=== PATIENT | female | born 1950 | race Caucasian/White ===

== ENCOUNTER → 2017-07-09 | Outpatient (CLI) | payer MEDICARE ==
--- NOTE | 2017-07-09 14:26 | RAD ---
DATE: 07/09/2017 EXAM: MAMMO KENISHA SCREENING BILATERAL HISTORY: Routine screening COMPARISON: 06/16/2016 This study was interpreted with the benefit of Computerized Aided Detection (CAD). The breast parenchyma is heterogeneously dense, which could reduce sensitivity of mammography. Breast parenchyma level C. FINDINGS: 2-D and 3-D tomosynthesis imaging was performed in CC and MLO projections. No new or enlarging breast densities are seen. There is minimal benign type calcification. No suspicious microcalcifications have developed. IMPRESSION: Stable mammograms without evidence of malignancy. BI-RADS CATEGORY: 2 BENIGN FINDING(S) RECOMMENDED FOLLOW-UP: 12M 12 MONTH FOLLOW-UP PQRS compliance statement: Patient information was entered into a reminder system with a target due date for the next mammogram. Mammography is a sensitive method for finding small breast cancers, but it does not detect them all and is not a substitute for careful clinical examination. A negative mammogram does not negate a clinically suspicious finding and should not result in delay in biopsying a clinically suspicious abnormality. "Our facility is accredited by the [employer] Mammography Program."
== END | disposition home or self-care (01) ==
LOC: MAMMO 10:57
PROVIDERS: ATTEND Family Medicine
DX: Z12.31 Encounter for screening mammogram for malignant neoplasm of breast (principal); Z80.3 Family history of malignant neoplasm of breast
CPT/HCPCS: 77063; G0202; 77067

== ENCOUNTER 2017-11-23 21:42 | Inpatient (IN) | payer MEDICARE ==
[~2017-11-23] VITALS: Ht 177.8 cm; Wt 95.0 kg
[~2017-11-23 21:42] MED LIST: CIPR500T94 PO
--- NOTE | 2017-11-23 21:49 | ED.ADGEN ---
Past History Past Medical History: UTI Adult General Chief Complaint Chief Complaint " I seen Dr. Butcher office and they started me on Cipro 500.. I ve been have dysuria and burning since last two days.. I ve been taking the AZO.. but it is not helping... I did take one Oxycodone 5 mg at 1400 hrs. .. and the Cipro at 1700.. I have a pending culture at [facility]... 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 Pt. has extensive medical hx. , Asthma, HTN, Hyperlipidemia, DVT, Blin Rt eye, Hearing deficits, Osteoarthritis, DJD, Polymyalgia Rhematica, GERD, diverticulosis, Migraines, Hypothyroid, Anxiety, Sleep Apnea, Chronic Pain, Urinary incontinence, Low Vit. D levels, KneeT Rt, Lumbar Laminectomy, Cervical Fusin, Laparoscopic Eval. , Cholecystectomy, Hysterectomey, Oopherectomy, Appendectomy. Diverticulosis, GERD and CADz. Pt. follows with Alana You Pasnoori, Vani, Holladay, Jones, Reifschneider, Kenia, Nicole, Law, Jasper Pascal for her multiple medical problems. Pt has had interment steroids for polymyalgia rheumatica.. and asthma. Last course of steroids was 10/02. Pt. localize pain to supra pubic and Rt. flank pain on percussion. Review of Systems Review of Systems Constitutional: Complaints of fever and chills [] Eyes: Denies change in visual acuity, redness, or eye pain [] HENT: Denies nasal congestion or sore throat [] Respiratory: Denies cough or shortness of breath [] Cardiovascular: No additional information not addressed in HPI [] GI: complaints of Rt. flank and suprapubic abdominal pain, nausea, Denies, vomiting, bloody stools or diarrhea [] : Denies dysuria or hematuria [] Musculoskeletal: Denies back pain or joint pain [] Integument: Denies rash or skin lesions [] Neurologic: Denies headache, focal weakness or sensory changes [] Endocrine: Denies polyuria or polydipsia [] All other systems were reviewed and found to be within normal limits, except as documented in this note. Family History Family History CHF, HTN, Parkinson, Prostate CA, Lung CA, Pneumonia, Parncreatic Cancer, Depression, Migraines,with parents. Brother ate 57, Liver Cancer. Current Medications Current Medications Current Medications Medications (Trade) Dose Ordered Sig/Talia Start Time Stop Time Status Last Admin Dose Admin Ceftriaxone Sodium 1 gm/ Sodium Chloride 50 ml @ 100 mls/hr BID 11/24/17 09:00 UNV Ceftriaxone Sodium (Rocephin) 1 gm Q12HR 11/24/17 09:00 11/24/17 09:00 DC Ciprofloxacin (Cipro) 500 mg [id number] 11/24/17 06:00 11/24/17 06:00 DC Lactated Ringer's 1,000 ml @ 1,000 mls/hr Q1H 11/23/17 22:30 11/23/17 23:29 DC 11/23/17 22:49 1,000 MLS/HR Lactobacillus Rhamnosus (Culturelle) 1 cap BID 11/24/17 09:00 11/24/17 09:00 DC Ondansetron HCl (Zofran) 4 mg PRN Q4HRS PRN 11/24/17 00:30 11/24/17 02:07 DC Oxycodone/ Acetaminophen (Percocet 10/325) 1 tab 1X ONCE 11/23/17 22:30 11/23/17 22:31 DC 11/23/17 22:50 1 TAB Oxycodone/ Acetaminophen (Percocet 5/325) 2 tab QIDPRN PRN 11/24/17 00:30 11/24/17 02:07 DC See Nursing for home meds Allergies Allergies Allergies Coded Allergies Type Severity Reaction Last Updated Verified aspirin Allergy Mild 11/23/17 Yes ibuprofen Allergy Mild 11/23/17 Yes ketorolac Allergy Mild 11/23/17 Yes Sulfa (Sulfonamide Antibiotics) Allergy Unknown 11/23/17 Yes amoxicillin Allergy Unknown 11/23/17 Yes bupropion Allergy Unknown 11/23/17 Yes celecoxib Allergy Unknown 11/23/17 Yes metoclopramide Allergy Unknown 11/23/17 Yes nitrofurantoin Allergy Unknown 11/23/17 Yes tetracycline Allergy Unknown 11/23/17 Yes topiramate Allergy Unknown 11/23/17 Yes Physical Exam Physical Exam Constitutional: Moderately acute distress, non-toxic appearance. [] HENT: Normocephalic, atraumatic, bilateral external ears normal, oropharynx moist, no oral exudates, nose normal. [] Eyes: Decreased vision Rt eye,, conjunctiva normal, no discharge. Glasses. Neck: Normal range of motion, no tenderness, supple, no stridor. [] Cardiovascular: Tachycardia Heart rate regular rhythm, no murmur [] Lungs & Thorax: Bilateral breath sounds few scattered wheezes apex on auscultation [] Abdomen: Bowel sounds normal, soft, supra pubic tenderness, no masses, no pulsatile masses. Old scars. Rt. flank pain on percussion. Skin: Warm, dry, no erythema, no rash. [] Back: No tenderness, no CVA tenderness. [] Extremities: No tenderness, no cyanosis, no clubbing, ROM intact, no edema. [] Neurologic: Alert and oriented X 3, normal motor function, normal sensory function, no focal deficits noted. [] Psychologic: Affect anxious, , judgement normal, mood normal. [] Current Patient Data Lab Results Laboratory Tests Test 11/23/17 21:55 11/23/17 22:45 11/23/17 23:15 Urine Collection Type Unknown Urine Color Yellow Urine Clarity Turbid Urine pH 7.0 Urine Specific [place] 1.010 Urine Protein 100 mg/dl (NEG-TRACE) Urine Glucose (UA) 100 mg/dL (NEG) Urine Ketones (Stick) Neg mg/dL (NEG) Urine Blood Large (NEG) Urine Nitrite Pos (NEG) Urine Bilirubin Neg (NEG) Urine Urobilinogen Dipstick 1 mg/dL (0.2 mg/dL) Urine Leukocyte Esterase Large (NEG) Urine RBC 11-20 /HPF (0-2) Urine WBC Tntc /HPF (0-4) Urine Squamous Epithelial Cells None /LPF Urine Bacteria 0 /HPF (0-FEW) White Blood Count 8.7 x10^3/uL (4.0-11.0) Red Blood Count 3.55 x10^6/uL (3.50-5.40) Hemoglobin 12.0 g/dL (12.0-15.5) Hematocrit 35.0 % (36.0-47.0) L Mean Corpuscular Volume 98 fL (79-100) Mean Corpuscular Hemoglobin 34 pg (25-35) Mean Corpuscular Hemoglobin Concent 34 g/dL (31-37) Red Cell Distribution Width 13.9 % (11.5-14.5) Platelet Count 211 x10^3/uL (140-400) Neutrophils (%) (Auto) 73 % (31-73) Lymphocytes (%) (Auto) 17 % (24-48) L Monocytes (%) (Auto) 8 % (0-9) Eosinophils (%) (Auto) 2 % (0-3) Basophils (%) (Auto) 0 % (0-3) Neutrophils # (Auto) 6.4 x10^3uL (1.8-7.7) Lymphocytes # (Auto) 1.5 x10^3/uL (1.0-4.8) Monocytes # (Auto) 0.7 x10^3/uL (0.0-1.1) Eosinophils # (Auto) 0.2 x10^3/uL (0.0-0.7) Basophils # (Auto) 0.0 x10^3/uL (0.0-0.2) Sodium Level 140 mmol/L (136-145) Potassium Level 4.1 mmol/L (3.5-5.1) Chloride Level 102 mmol/L (98-107) Carbon Dioxide Level 30 mmol/L (21-32) Anion Gap 8 (6-14) Blood Urea Nitrogen 17 mg/dL (7-20) Creatinine 0.8 mg/dL (0.6-1.0) Estimated GFR (Cockcroft-Gault) 71.5 Glucose Level 142 mg/dL (70-99) H Lactic Acid Level 2.0 mmol/L (0.4-2.0) Calcium Level 8.7 mg/dL (8.5-10.1) Influenza Type A (Rapid) Negative (NEGATIVE) Influenza Type B (Rapid) Negative (NEGATIVE) EKG EKG [] Radiology/Procedures Radiology/Procedures [] Course & Med Decision Making Course & Med Decision Making Pertinent Labs and Imaging studies reviewed. (See chart for details) Discussed presentation, testing and treatment plan with , will admit for IV antibiotic and further eval. [] Final Impression Final Impression 1. Dysuria 2. Fever and Chills[] 3. Urinary tract infection- 4. Out Pt. tx. faliure on po antibiotics 5. Clinical Pyelonephritis Problems: All Disclaimer Dragon Disclaimer This electronic medical record was generated, in whole or in part, using a voice recognition dictation system. MAGEN BROWER MD Nov 23, 2017 21:49
[2017-11-23] MEDS ORDERED: oxyCODONE/APAP 10/325 1 TAB TABLET PO ONE (22:30)
[2017-11-23] MEDS ORDERED: IV RINGERS SOLUTION,LACTATED 1,000 ML IV SCH (22:30)
[2017-11-23] MEDS ORDERED: ONDANSETRON PF 4 MG/2 ML VIAL. IV ONE ×2 (22:30)
[2017-11-23 22:37] LABS: BACTERIA,URINE 0 /HPF (0-FEW); BILIRUBIN,URINE NEG (NEG); CLARITY,URINE TURBID; COLOR,URINE YELLOW; GLUCOSE,URINE 100 mg/dL (NEG); NITRITE,URINE POS (NEG); UROBILINOGEN,URINE 1 mg/dL (0.2 mg/dL); WBC,URINE TNTC /HPF (0-4)
[2017-11-23] MEDS ORDERED: cefTRIAXone IV Push 1 GM VIAL. IVP ONE (23:00)
[2017-11-23 23:08] LABS: BASO % 0 % (0-3); CALCIUM 8.7 mg/dL (8.5-10.1); CREATININE 0.8 mg/dL (0.6-1.0); EOS # 0.2 x10^3/uL (0.0-0.7); EOS % 2 % (0-3); GFR 71.5; LYMPH # 1.5 x10^3/uL (1.0-4.8); LYMPH % 17 % (24-48); MEAN CORPUSCULAR HEMOGLOBIN 34 pg (25-35); MEAN CORPUSCULAR HGB CONC 34 g/dL (31-37); MEAN CORPUSCULAR VOLUME 98 fL (79-100); MONO # 0.7 x10^3/uL (0.0-1.1); MONO % 8 % (0-9); NEUT # 6.4 x10^3uL (1.8-7.7); NEUT % 73 % (31-73); PLATELET COUNT 211 x10^3/uL (140-400); POTASSIUM 4.1 mmol/L (3.5-5.1); RED BLOOD COUNT 3.55 x10^6/uL (3.50-5.40); RED CELL DISTRIBUTION WIDTH 13.9 % (11.5-14.5); WHITE BLOOD COUNT 8.7 x10^3/uL (4.0-11.0)
[2017-11-23 23:47] LABS: INFLUENZA A PATIENT NEGATIVE (NEGATIVE); INFLUENZA B PATIENT NEGATIVE (NEGATIVE)
[2017-11-24] MEDS ORDERED: ONDANSETRON PF 4 MG/2 ML VIAL. IV PRN (00:30)
[2017-11-24] MEDS ORDERED: oxyCODONE/APAP 5/325 1 TAB TABLET PO PRN (00:30)
[2017-11-24 02:47] VITALS: BP 129/71
[2017-11-24] MEDS ORDERED: METO-239 PO (03:07)
[2017-11-24] MEDS ORDERED: CITA20TA9 PO (03:07)
[2017-11-24] MEDS ORDERED: PANT40TA5 PO (03:08)
[2017-11-24] MEDS ORDERED: LEVO50TA5 PO (03:08)
[2017-11-24] MEDS ORDERED: MULT1TAB52 PO (03:09)
[2017-11-24] MEDS ORDERED: ATOR10TA60 PO (03:09)
[2017-11-24] MEDS ORDERED: FEXO180T81 PO (03:09)
[2017-11-24] MEDS ORDERED: LORA10TA3 PO (03:09)
[2017-11-24] MEDS ORDERED: FURO-69 PO (03:12)
[2017-11-24] MEDS ORDERED: MAGN400C PO (03:12)
[2017-11-24] MEDS ORDERED: CHOL500016 PO (03:12)
[2017-11-24] MEDS ORDERED: TIOT4MIS3 IH (03:24)
[2017-11-24] MEDS ORDERED: ALBU8.5H8 INH (03:24)
[2017-11-24] MEDS ORDERED: ACETAMINOPHEN 500 MG TABLET PO PRN (04:15)
[2017-11-24] MEDS ORDERED: ACETAMINOPHEN 325 MG TABLET PO ONE (04:25)
[2017-11-24] MEDS: ACETAMINOPHEN 325 MG TABLET PO PRN ×3 (04:33→21:03)
[2017-11-24] MEDS: CIPROFLOXACIN HCL 500 MG TABLET PO SCH ×2 (04:34→19:18)
[2017-11-24 04:54] VITALS: BP 112/54
[2017-11-24] MEDS ORDERED: cefTRIAXone IV Push 1 GM VIAL. IVP SCH (09:00)
[2017-11-24] MEDS: LACTOBACILLUS RHAMNOSUS GG 1 CAPSULE. PO SCH ×2 (10:24→20:26)
[2017-11-24 11:41] VITALS: BP 110/65
[2017-11-24 15:34] VITALS: BP 125/57
[2017-11-24] MEDS ORDERED: IOHEXOL 240 MG/ML 50ML VIAL. PO ONE (17:00)
[2017-11-24] MEDS ORDERED: IOHEXOL 300 MG/ML 75 ML VIAL. IV ONE (17:00)
[2017-11-24 18:04] LABS: HEMATOCRIT 32.9 % (36.0-47.0); HEMOGLOBIN 11.3 g/dL (12.0-15.5); RED BLOOD COUNT 3.32 x10^6/uL (3.50-5.40); RED CELL DISTRIBUTION WIDTH 14.4 % (11.5-14.5)
[2017-11-24 18:14] LABS: ALBUMIN 3.1 g/dL (3.4-5.0); CALCIUM 8.6 mg/dL (8.5-10.1); CREATININE 0.9 mg/dL (0.6-1.0); GFR 62.5; POTASSIUM 4.2 mmol/L (3.5-5.1); TOTAL BILIRUBIN 0.2 mg/dL (0.2-1.0); TOTAL PROTEIN 6.3 g/dL (6.4-8.2)
[2017-11-24] MEDS ORDERED: ALBUTEROL SULFATE 2.5 MG/3 ML NEBU. NEB PRN (18:15)
--- NOTE | 2017-11-24 18:33 | RAD ---
CT CHEST ABD PELVIS W/CONTRAST Indication: Fever with cough and abdominal pain . Comparison: No comparison is available. Contrast: Intravenous and oral Exposure: One or more of the following individualized dose reduction techniques were utilized for this examination: 1. Automated exposure control 2. Adjustment of the mA and/or kV according to patient size 3. Use of iterative reconstruction technique. Chest Thoracic aorta demonstrates no aneurysm or dissection. Proximal great vessels are patent. The main central pulmonary arteries are grossly patent. No pericardial effusion. No pleural effusion. Mild linear markings in both lungs, compatible with mild atelectasis. No dense airspace consolidation. The trachea and central airways are patent. Mild degenerative spondylosis. IMPRESSION: No acute findings in the chest. Mild atelectasis in both lungs. Abdomen and pelvis Liver and spleen appear unremarkable. Pancreas unremarkable. There is a small pocket of contrast and air adjacent to the pancreatic head and just medial to the duodenum, likely a diverticulum, measuring 15 mm. No adrenal mass. Kidneys demonstrate symmetric uptake of contrast. Hypodense lesion arising from the lower pole of the right kidney, 4.5 cm diameter, compatible with a cyst. Gallbladder surgically absent. No aortic aneurysm. No evidence of significant lymph node enlargement. No bowel obstruction. No acute colitis. Moderate retained stool in the colon. Appendix is not clearly visualized. No evidence of ascites. Urinary bladder is not opacified but grossly unremarkable. Degenerative spondylosis of the spine. IMPRESSION: 1. No acute findings in the abdomen or pelvis. 2. Small pocket of contrast and fluid medial to the duodenum likely a diverticulum, 15 mm. 3. There may be mild constipation. Electronically signed by: Luis E Lopez MD (11/24/2017 6:30 PM) [id number]
[2017-11-24 19:13] VITALS: BP 117/50
--- NOTE | 2017-11-24 20:25 | HP ---
ADMIT DATE: SUBJECTIVE: The patient is a 67-year-old female who basically has been having dysuria and burning sensation and frequency that started last . She is taking her ____, but not in much help. She has taken also one oxycodone without much help and started Cipro at 1700 yesterday without much improvement and she came to the Emergency Room because of severe pain. She was extensively investigated and was basically started on IV antibiotic and admitted for further evaluation and treatment and was continued on both Cipro and the ER physician added also Rocephin. She denied any fever, chills, or rigors. She did have chills actually, but no fever or rigors. 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 She has also aches and pains in her shoulders and was seen by Dr. Hamlin who diagnosed her with polymyalgia rheumatica, but she could not tolerate any steroids, it tears her stomach. PAST MEDICAL HISTORY: Significant for hypertension, hyperlipidemia, hypothyroidism, bronchial asthma, gastroesophageal reflux disease, chronic cough syndrome and questionable polymyalgia rheumatica. She has also noted to have obstructive sleep apnea, on CPAP. She did have a history of DVT long time ago. Significant for total abdominal hysterectomy and bilateral salpingo-oophorectomy, cholecystectomy, cervical fusion and lumbar laminectomy, bilateral cataract extraction, right total knee arthroplasty and multiple surgeries on both feet, totalled about 4, she has also left middle ear surgery. ALLERGIES: SHE IS ALLERGIC TO SULFA, AMOXICILLIN, ASPIRIN, WELLBUTRIN, and CELEBREX, TOGETHER WITH NITROFURANTOIN. SOCIAL HISTORY: Unremarkable, she is , lives with . 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 She does not smoke, drink alcohol or recreational drugs. FAMILY HISTORY: Positive for cancer, heart disease, osteoarthritis and Parkinson's disease. REVIEW OF SYSTEMS: As in history of present illness. On arrival to the Emergency Room, she was pale, no jaundice, cyanosis, or thyromegaly. No jugular venous distension. No lower limb edema. PHYSICAL EXAMINATION: VITAL SIGNS: Her heart rate was 89, blood pressure 145/66, temperature was 100, respiratory rate was 20, and oxygen saturation was 99%. HEAD, EYES, EARS, NOSE AND THROAT: Normocephalic, atraumatic. NECK: Supple. HEART: Showed normal first and second sounds. No gallop, rub or murmur. CHEST: Shows central trachea, equal bilateral expansion, air entry, vesicular sounds. I could not really appreciate any crepitation or rhonchi. ABDOMEN: Distended, soft, nontender. NEUROLOGIC: She is awake, alert, responding appropriately. Cranial nerves intact. She moves extremities without difficulty. She ambulates without assistance or assistive devices. LABORATORY DATA: Showed a white cell count of 8700, hemoglobin 12, hematocrit 35, MCV 98 and platelet count of 211,000. Her chemistry showed a serum sodium 140, potassium 4.1, chloride 102, bicarbonate 30, anion gap of 8, BUN 17, creatinine 0.8, estimated GFR was 71 mL per minute. Her glucose 142, lactic acid 2, and calcium was 8.7. Urinalysis showed the urine was yellow, turbid with a pH of 7, specific gravity of 1.010, there is large amount of protein and modest amount of glucose, the urine was negative for ketones, large amount of blood, ____ for nitrite and large amount of leukocyte esterase with 11-20 RBCs, too numerous to count WBCs and no bacteria. She was admitted with the diagnoses of urinary tract infection and possible viral nephritis. She has other medical problems including chronic cough syndrome versus bronchial asthma, obstructive sleep apnea, polymyalgia rheumatica, hypertension, hyperlipidemia, hypothyroidism and gastroesophageal reflux disease. PLAN: My plan is to continue with IV antibiotic. Await the result of the culture and sensitivity and adjust antibiotic accordingly. SANTO LING MD DR: JORGE/jordan JOB#: [id number] / [id number]
[2017-11-24] MEDS: MAGNESIUM OXIDE 400 MG TABLET PO SCH (20:27)
[2017-11-24] MEDS ORDERED: ATORVASTATIN CALCIUM 10 MG TABLET. PO SCH (21:00)
[2017-11-24] MEDS ORDERED: METOPROLOL SUCC 24HR ER 25 MG TAB.ER.24H. PO SCH (21:00)
[2017-11-24] MEDS ORDERED: LEVOTHYROXINE 50 MCG TABLET PO SCH ×2 (21:00)
[2017-11-24] MEDS ORDERED: MULTIVITAMIN with MINERAL TABLET. PO SCH (21:00)
[2017-11-24] MEDS ORDERED: CIPROFLOXACIN HCL 500 MG TABLET PO SCH (21:00)
[2017-11-24] MEDS ORDERED: CITALOPRAM 20 MG TABLET. PO SCH (21:00)
[2017-11-24] MEDS: PANTOPRAZOLE 40 MG TABLET. PO SCH (21:01)
[2017-11-24] MEDS: IPRATRPIUM/ALBUTEROL 0.5/2.5MG 3 ML NEBU. NEB SCH (21:27)
[2017-11-24 22:58] VITALS: BP 126/63
[2017-11-25] MEDS: IPRATRPIUM/ALBUTEROL 0.5/2.5MG 3 ML NEBU. NEB SCH ×2 (05:18→11:22)
[2017-11-25 05:30] VITALS: BP 105/57
[2017-11-25] MEDS: ACETAMINOPHEN 325 MG TABLET PO PRN ×2 (05:32→12:48)
[2017-11-25] MEDS: CIPROFLOXACIN HCL 500 MG TABLET PO SCH (05:32)
[2017-11-25] MEDS ORDERED: LEVOTHYROXINE 50 MCG TABLET PO SCH (06:00)
[2017-11-25 07:27] LABS: HEMATOCRIT 32.3 % (36.0-47.0); HEMOGLOBIN 11.2 g/dL (12.0-15.5); RED BLOOD COUNT 3.26 x10^6/uL (3.50-5.40); RED CELL DISTRIBUTION WIDTH 14.7 % (11.5-14.5); WHITE BLOOD COUNT 5.3 x10^3/uL (4.0-11.0)
[2017-11-25 07:45] LABS: ALBUMIN/GLOBULIN RATIO 0.9 (1.0-1.7); CALCIUM 8.9 mg/dL (8.5-10.1); CREATININE 0.8 mg/dL (0.6-1.0); GFR 71.5; POTASSIUM 3.9 mmol/L (3.5-5.1); TOTAL BILIRUBIN 0.3 mg/dL (0.2-1.0); TOTAL PROTEIN 6.2 g/dL (6.4-8.2)
[2017-11-25] MEDS: PANTOPRAZOLE 40 MG TABLET. PO SCH (08:04)
[2017-11-25] MEDS: MAGNESIUM OXIDE 400 MG TABLET PO SCH (08:04)
[2017-11-25] MEDS: LACTOBACILLUS RHAMNOSUS GG 1 CAPSULE. PO SCH (08:04)
[2017-11-25] MEDS ORDERED: CHOLECALCIFEROL (VITAMIN D3) 1,000 UNIT TABLET PO SCH (09:00)
[2017-11-25] MEDS ORDERED: NON FORMULARY ITEM (Tiotropium Br/Olodaterol HCl (Stiolto Respimat Inhal Spray) 4 GM) IH SCH (09:00)
[2017-11-25] MEDS ORDERED: CETIRIZINE HCL 10 MG TABLET PO SCH (09:00)
[2017-11-25] MEDS ORDERED: FUROSEMIDE 20 MG TABLET PO SCH (09:00)
[2017-11-25] MEDS ORDERED: cefTRIAXone IV Push 1 GM VIAL. IVP SCH (09:00)
[2017-11-25] MEDS ORDERED: NON FORMULARY ITEM (Fexofenadine Hcl (Allegra Allergy) 1 TAB) PO SCH (09:00)
[2017-11-25 10:46] VITALS: BP 118/51
--- NOTE | 2017-11-25 15:49 | DS ---
DATE OF DISCHARGE: 11/25/2017 HISTORY OF PRESENT ILLNESS: The patient is a 67-year-old female patient, who came to the Emergency Room complaining of severe lower abdominal pain and left flank pain together with dysuria and frequency, there is also some chills. She was already started by her primary care physician on ciprofloxacin. Her urinalysis showed that there are large amount of leukocyte esterase, 11-20 rbc's and too numerous to count wbc's, however, no bacteria and her urine culture has grown only 10,000-25,000 of gram-negative rods. This was obviously after she received her Cipro and the patient herself is feeling much better. She has no further episode of dysuria or frequency. No fever and we did a CT scan of the abdomen and pelvis, which was basically unremarkable and showed no acute finding in the abdomen and pelvis, small pocket of contrast and fluid medium to duodenum, likely diverticulum about 15 mm. There might be mild constipation. PHYSICAL EXAMINATION: GENERAL: When I examined her, she was sitting on the edge of the bed comfortably, in no apparent distress, slightly pale, but no jaundice, cyanosis, or thyromegaly. No jugular venous distension. No limb edema. VITAL SIGNS: Her heart rate was 74, blood pressure was 118/51, temperature was 97.9, respiratory rate was 18 and oxygen saturation was 96%. HEAD, EYES, EARS, NOSE AND THROAT: Showed normocephalic, atraumatic. NECK: Supple. HEART: Showed normal first and second heart sounds with no gallop, rub or murmur. CHEST: Clear to auscultation. No crepitation or rhonchi. ABDOMEN: Distended, soft. NEUROLOGIC: She was awake, alert, responding appropriately. Cranial nerves intact. EXTREMITIES: She moves extremities without difficulty. LABORATORY DATA: Her white cell count is down to 5300, hemoglobin 11, hematocrit 32, MCV 99, and platelet count of 178,000. Her sedimentation rate was 60 mm per hour and her serum sodium was 141, potassium 3.9, chloride 104, bicarbonate 31, anion gap of 6, BUN 12, creatinine 0.8, estimated GFR was 71 mL per minute. Her glucose 142, calcium was 8.9. Total bilirubin, AST, ALT, alkaline phosphatase were normal. Her total protein was 6.2, albumin 3. Her C-reactive protein was high at 76 mg/dL. DISCHARGE MEDICATIONS: The patient was discharged home to continue on albuterol sulfate 2 puffs every 6 hours, atorvastatin 10 mg at bedtime, cholecalciferol for vitamin D3 5000 units one tablet p.o. at bedtime, ciprofloxacin 500 mg twice a day, Celexa 20 mg at bedtime, fexofenadine for Susie 180 mg once a day, Lasix 20 mg once a day, levothyroxine sodium 50 mg at bedtime, loratadine 10 mg at bedtime, magnesium oxide 400 mg twice a day, metoprolol succinate 25 mg once a day, multivitamin one tablet once a day, Protonix 40 mg twice a day, Spiriva HandiHaler, olodaterol for Stiolto Respimat inhaler spray 1 inhalation daily. FINAL DISCHARGE DIAGNOSES: Urinary tract infection with growth of gram-negative bacteria. The colony count is very small, however, she has already been treated with Cipro and I did ask her to call Dr. Butcher to find out if that was sent from his office showed any growth to continue treatment according to the finding there. Clinically, she seems to be responding to that. Other medical problems include hypertension, hyperlipidemia, hypothyroidism, bronchial asthma, gastroesophageal reflux disease, chronic cough syndrome, questionable polymyalgia rheumatica. She also has obstructive sleep apnea, on CPAP. SANTO LING MD DR: JORGE/jordan JOB#: [id number] / [id number]
== END 2017-11-25 15:13 | disposition home or self-care (01) | DRG 690 ==
LOC: ER 21:42 → 1 SOUTH 11-24 00:01 → ER 11-24 02:07
PROVIDERS: ADMIT Internal Medicine; ATTEND Internal Medicine
PROC: 5A09357 Assistance with Respiratory Ventilation, Less than 24 Consecutive Hours, Continuous Positive Airway Pressure (ICD-10-PCS; principal; 2017-11-24)
DX: N39.0 Urinary tract infection, site not specified (principal); Z99.81 Dependence on supplemental oxygen; E03.9 Hypothyroidism, unspecified; E78.5 Hyperlipidemia, unspecified; G47.33 Obstructive sleep apnea (adult) (pediatric); K57.10 Diverticulosis of small intestine without perforation or abscess without bleeding; I10 Essential (primary) hypertension; J45.909 Unspecified asthma, uncomplicated; K21.9 Gastro-esophageal reflux disease without esophagitis; F41.9 Anxiety disorder, unspecified; G43.909 Migraine, unspecified, not intractable, without status migrainosus; G89.29 Other chronic pain; H54.61 Unqualified visual loss, right eye, normal vision left eye; I25.10 Atherosclerotic heart disease of native coronary artery without angina pectoris; B96.20 Unspecified Escherichia coli [E. coli] as the cause of diseases classified elsewhere; M35.3 Polymyalgia rheumatica; K59.00 Constipation, unspecified; Z96.651 Presence of right artificial knee joint; Z80.0 Family history of malignant neoplasm of digestive organs; Z80.1 Family history of malignant neoplasm of trachea, bronchus and lung; Z81.8 Family history of other mental and behavioral disorders; Z82.0 Family history of epilepsy and other diseases of the nervous system; Z82.49 Family history of ischemic heart disease and other diseases of the circulatory system; Z86.718 Personal history of other venous thrombosis and embolism; Z90.710 Acquired absence of both cervix and uterus; Z98.41 Cataract extraction status, right eye; Z98.42 Cataract extraction status, left eye; Z88.6 Allergy status to analgesic agent; Z88.1 Allergy status to other antibiotic agents; Z88.2 Allergy status to sulfonamides; Z88.8 Allergy status to other drugs, medicaments and biological substances; Z90.722 Acquired absence of ovaries, bilateral; Z90.49 Acquired absence of other specified parts of digestive tract; Z82.61 Family history of arthritis; Z80.42 Family history of malignant neoplasm of prostate; Z98.1 Arthrodesis status
CPT/HCPCS: 36415; 71260; 74177; 80048; 80053; 81001; 83605; 85025; 85027; 85651; 86140; 87040; 87086; 87804; 94640; 96361; 96374; 96375; J0696; J2405; J7120; J7620; Q9966; Q9967; 99285-25

== ENCOUNTER → 2018-07-18 | Outpatient (CLI) | payer MEDICARE ==
[~2018-07-18] MED LIST changes: +ALBU8.5H8 INH; +ATOR10TA60 PO; +CHOL500016 PO; +CITA20TA9 PO; +FEXO180T81 PO; +FURO-69 PO; +LEVO50TA5 PO; +LORA10TA3 PO; +MAGN400C PO; +METO-239 PO; +MULT1TAB52 PO; +PANT40TA5 PO; +TIOT4MIS3 IH
--- NOTE | 2018-07-18 13:56 | RAD ---
DATE: 07/18/2018 EXAM: DIGITAL SCREEN BILAT W/CAD HISTORY: Routine screening COMPARISON: 07/09/2017 This study was interpreted with the benefit of Computerized Aided Detection (CAD). Breast Density: HETERO The breast parenchyma is heterogenously dense, which could reduce sensitivity of mammography. Breast parenchyma level C. FINDINGS: No new or enlarging breast densities are seen. Minimal benign type calcification is present. No suspicious microcalcifications have developed. IMPRESSION: Stable mammograms without evidence of malignancy. BI-RADS CATEGORY: 2 BENIGN FINDING(S) RECOMMENDED FOLLOW-UP: 12M 12 MONTH FOLLOW-UP PQRS compliance statement: Patient information was entered into a reminder system with a target due date for the next mammogram. Mammography is a sensitive method for finding small breast cancers, but it does not detect them all and is not a substitute for careful clinical examination. A negative mammogram does not negate a clinically suspicious finding and should not result in delay in biopsying a clinically suspicious abnormality. "Our facility is accredited by the [employer] Mammography Program."
== END | disposition home or self-care (01) ==
LOC: MAMMO 10:06
PROVIDERS: ATTEND Family Medicine
DX: Z12.31 Encounter for screening mammogram for malignant neoplasm of breast (principal)
CPT/HCPCS: 77067

== ENCOUNTER → 2018-08-20 | Outpatient (CLI) | payer MEDICARE ==
--- NOTE | 2018-08-20 16:51 | RAD ---
Examination: Right Lower Extremity Venous Doppler Ultrasound History: Right lower extremity pain, swelling Comparison: None Procedure: Rodriguez scale, color flow 2D and spectal waveform analysis images are obtained with and without compression in the area of the common femoral vein, superficial femoral vein - femoral vein junction, main femoral vein (superficial femoral vein) and popliteal vein. Veins of the proximal calf are also imaged. Findings: There is normal duplex flow, color flow and compressibility of all visualized vein segments. No evidence of deep venous thrombus is present. Fluid echogenicity identified in the anterior knee region could be joint effusion or bursal fluid.. Impression: 1. No evidence of DVT. 2. Fluid echogenicity identified in the anterior knee region could be joint effusion or bursal fluid.. Electronically signed by: Lex Lr MD (08/20/2018 4:48 PM) [place] [id number]
== END | disposition home or self-care (01) ==
LOC: US 15:12
PROVIDERS: ATTEND Specialist
DX: M79.661 Pain in right lower leg (principal); R22.41 Localized swelling, mass and lump, right lower limb
CPT/HCPCS: 93971

== ENCOUNTER → 2019-08-14 | Outpatient (CLI) | payer MEDICARE ==
[~2019-08-14] MED LIST changes: +ALBU2.5V8 INH; -ALBU8.5H8 INH
--- NOTE | 2019-08-14 16:26 | RAD ---
EXAM: Dual energy x-ray absorptiometry (DEXA). HISTORY: Postmenopausal female presents for osteoporosis screening. COMPARISON: None. TECHNIQUE: Dual energy x-ray absorptiometry of the lumbar spine and right hip was performed. Calculation of bone mineral density based on standard deviations above or below the expected young adult normal value (T-score) was completed. FINDINGS: The average bone mineral density in the 1st through 4th lumbar vertebrae is 1.085 g/cmxcm, corresponding with a T-score of -0.8. The average total bone mineral density in the right hip is 0.918 g/cmxcm, corresponding with a T-score of -0.3. IMPRESSION: Normal bone mineral density. Note: Definitions established by the World Health Organization: 1. Normal: T-score is -1.0 or above. 2. Osteopenia: T-score is between -1.0 and -2.5 . 3. Osteoporosis: T-score is -2.5 or below. Electronically signed by: Chetna Paredes MD (08/14/2019 4:23 PM) [email or web address]
--- NOTE | 2019-08-15 10:12 | RAD ---
DATE: August 14, 2019 EXAM: MAMMO KENISHA SCREENING BILATERAL HISTORY: Screening study. COMPARISON: 2016 and 2018 This study was interpreted with the benefit of Computerized Aided Detection (CAD). 2-D digital mammographic views of both breasts were performed in the CC and MLO projections. 3-D digital tomosynthesis images of both breasts were performed in the CC and MLO projections and reviewed on a computer workstation. FINDINGS: Breast Density: HETERO The breast parenchyma is heterogenously dense, which could reduce sensitivity of mammography. Breast parenchyma level C.. There are no dominant suspicious masses, suspicious microcalcifications or evidence of architectural distortion. IMPRESSION: No mammographic indicators for malignancy. BI-RADS CATEGORY: 1 NEGATIVE RECOMMENDED FOLLOW-UP: 12M 12 MONTH FOLLOW-UP PQRS compliance statement: Patient information was entered into a reminder system with a target due date August 15, 2020 for the next mammogram. Mammography is a sensitive method for finding small breast cancers, but it does not detect them all and is not a substitute for careful clinical examination. A negative mammogram does not negate a clinically suspicious finding and should not result in delay in biopsying a clinically suspicious abnormality. "Our facility is accredited by the [employer] Mammography Program." The patient's breast density may affect the ability of mammography to detect breast cancer. There are 4 categories of breast density, A, B, C and D. Breast density A means that most of the breast tissue is replaced with adipose tissue and therefore is not dense. Breast density B means that the breast tissue is mildly dense and scattered. Breast density C means that the breast tissue is heterogeneously dense. Breast density D means that the breast tissue is very dense. Breast densities especially C and D may decrease the sensitivity of mammography to detect breast cancer. Therefore, the patient may benefit from 3-D breast mammography (3D breast tomography) as a part of their screening mammogram. Insurance may or may not pay for this additional imaging. The patient's breast density based on today's mammogram is category C.
== END | disposition home or self-care (01) ==
LOC: DXRAD 14:14
PROVIDERS: ATTEND Specialist
DX: Z12.31 Encounter for screening mammogram for malignant neoplasm of breast (principal); Z13.820 Encounter for screening for osteoporosis; N95.9 Unspecified menopausal and perimenopausal disorder
CPT/HCPCS: 77063; 77067; 77080

== ENCOUNTER → 2019-09-12 | Outpatient (CLI) | payer MEDICARE ==
--- NOTE | 2019-09-12 15:11 | RAD ---
CHEST PA LATERAL History: Shortness of breath Comparison: None. Findings: Frontal and lateral views of the chest were obtained. The cardiomediastinal silhouette is normal. Pulmonary vasculature is normal. Minimal discoid atelectasis at the left lower lung field noted.. No pleural effusion or pneumothorax is seen. There is no acute bone abnormality. Postoperative cervical spine fusion noted. Bilateral cervical ribs are present. IMPRESSION: No infiltrate. Electronically signed by: bAhay Jacome MD (09/12/2019 3:08 PM) [facility]
== END | disposition home or self-care (01) ==
LOC: DXRAD 14:53
PROVIDERS: ATTEND Specialist
DX: J98.11 Atelectasis (principal)
CPT/HCPCS: 71046

== ENCOUNTER → 2019-10-24 | Outpatient (CLI) | payer MEDICARE ==
--- NOTE | 2019-10-24 15:29 | RAD ---
Single AP view the pelvis without comparison for pelvic pain. FINDINGS: There is a transitional lumbosacral vertebral body. There is no fracture or acute osseous abnormality identified. No significant degenerative changes are seen. No radiopaque foreign bodies are evident. IMPRESSION: 1. No acute osseous abnormality of the pelvis. 2. Transitional lumbosacral vertebral body. Electronically signed by: Fito Rausch MD (10/24/2019 3:27 PM) [id number]
== END | disposition home or self-care (01) ==
LOC: DXRAD 14:33
PROVIDERS: ATTEND Specialist
DX: R29.898 Other symptoms and signs involving the musculoskeletal system (principal); M54.5 Low back pain
CPT/HCPCS: 72170

== ENCOUNTER → 2020-02-20 | Outpatient (CLI) | payer MEDICARE ==
[~2020-02-20] MED LIST changes: +MULT-445 PO; -MULT1TAB52 PO
--- NOTE | 2020-02-20 16:32 | RAD ---
PA chest x-ray and 3 views of the right ribs without comparison for pain in the right lower ribs, back pain, fell 3 weeks ago. FINDINGS: There is mild elevation left hemidiaphragm. Small calcified granuloma seen in the right upper lung. Lungs are otherwise clear. Cardiomediastinum is grossly unremarkable. Postsurgical changes of the cervical spine are seen. No radiographically evident acute rib fractures are identified, though there may be an old healed fracture at the right sixth rib. IMPRESSION: 1. No acute cardiopulmonary abnormality. 2. No radiographically evident acute rib fracture, though there may be an old healed rib fracture at the posterior aspect of the right sixth rib. 3. Calcified granuloma in the right upper lung. Electronically signed by: Fito Rausch MD (02/20/2020 4:29 PM) [id number]
== END ==
LOC: DXRAD 14:49
PROVIDERS: ATTEND Specialist
DX: J98.4 Other disorders of lung (principal); J84.10 Pulmonary fibrosis, unspecified
CPT/HCPCS: 71101

== ENCOUNTER → 2020-08-19 | Outpatient (CLI) | payer MEDICARE ==
[~2020-08-19] MED LIST changes: -PANT40TA5 PO; +PANT40TA6 PO
--- NOTE | 2020-08-19 15:56 | RAD ---
Examination: MG BILAT SCREEN+KENISHA History: Reason: SCREENING MAMMOGRAM 3D / Spl. Instructions: / History: Comparison/Correlation: 06/16/2016, 07/09/2017, 07/18/2018, 08/14/2019 Technique: MLO and CC digital tomosynthesis (3D) images obtained. Radiologist reviewed these images on dedicated workstation. Findings: Breast Tissue Density C : The breasts are heterogeneously dense, which may obscure small masses. There are no dominant masses, suspicious microcalcifications, or architectural distortion. IMPRESSION: No mammographic evidence of malignancy. Recommend routine screening. BI-RADS category 1: Negative. The images were reviewed with computer-aided detection. Patient information is entered into reminder system with a target due date [facility]. Mammography is the most sensitive method for finding small breast cancers, but it does not detect the m all and is not a substitute for careful clinical examination. A negative mammogram does not negate a clinically suspicious finding and should not result in delay in biopsying a clinically suspicious a bnormality. "Our facility is accredited by the [employer] Mammography [employer]." Electronically signed by: Abhay Jacome MD (08/19/2020 3:53 PM) [id number]
== END ==
LOC: MAMMO 08:31
PROVIDERS: ATTEND Specialist
DX: Z12.31 Encounter for screening mammogram for malignant neoplasm of breast (principal)
CPT/HCPCS: 77063; 77067

== ENCOUNTER → 2020-11-22 | Outpatient (CLI) | payer MEDICARE ==
[~2020-11-22] MED LIST changes: +IOHEXOL 240 MG/ML 50ML VIAL. ONE; +IOHEXOL 300 MG/ML 75 ML VIAL. IV ONE
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
== END ==
LOC: CT 08:51
PROVIDERS: ATTEND Specialist
DX: M47.816 Spondylosis without myelopathy or radiculopathy, lumbar region (principal); M25.78 Osteophyte, vertebrae; M48.061 Spinal stenosis, lumbar region without neurogenic claudication
CPT/HCPCS: 71250; 74177; Q9967

== ENCOUNTER → 2021-04-08 | Outpatient (CLI) | payer MEDICARE ==
[~2021-04-08] MED LIST changes: -IOHEXOL 240 MG/ML 50ML VIAL. ONE; -IOHEXOL 300 MG/ML 75 ML VIAL. IV ONE
--- NOTE | 2021-04-08 15:04 | RAD ---
XR EXAM OF ANKLE_LEFT 2V 04/08/2021 2:57 PM Reason: LEFT ANKLE PAIN Comparison: None Technique: 2 views of the left ankle Findings: Acute fracture or dislocation. The ankle mortise is congruent. No ankle joint effusion. The re are smooth round calcifications in the anterior subcutaneous tissues. There is swelling and infilt ration of the subcutaneous fat which is greatest along the medial ankle. Partially visualized are chr onic osseous changes of the entire forefoot and postsurgical changes. Impression: Soft tissue swelling of the lower leg and medial ankle without acute osseous abnormality. Electronically signed by: Emanuel Garrett (04/08/2021 3:01 PM) [id number]
== END ==
LOC: RAD 13:15
PROVIDERS: ATTEND Physician Assistant
DX: M79.89 Other specified soft tissue disorders (principal); M25.572 Pain in left ankle and joints of left foot
CPT/HCPCS: 73600

== ENCOUNTER → 2021-08-10 | Outpatient (CLI) | payer MEDICARE ==
--- NOTE | 2021-08-10 17:15 | RAD ---
Exam: Left ankle 3 views INDICATION: Left ankle pain and swelling on medial side TECHNIQUE: Frontal, lateral and oblique views of the left ankle Comparisons: None FINDINGS: Diffuse soft tissue swelling at the ankle. Bone mineralization is normal. No acute or healed fracture s. Joint spaces are well-maintained. IMPRESSION: Soft tissue swelling surrounding the ankle without underlying osseous abnormality identified. Electronically signed by: Mary Wen MD (08/10/2021 5:12 PM) MAURA
== END ==
LOC: RAD 16:55
PROVIDERS: ATTEND Specialist
DX: M79.89 Other specified soft tissue disorders (principal); M25.572 Pain in left ankle and joints of left foot
CPT/HCPCS: 73610

== ENCOUNTER → 2021-09-30 | Outpatient (CLI) | payer MEDICARE ==
--- NOTE | 2021-09-30 15:15 | RAD ---
Left lower extremity venous duplex study 09/30/2021 Clinical History: Left leg swelling and bruising. Technique: Using a combination of real time ultrasound imaging and color-flow and pulse Doppler imagi ng techniques along with graded compression and augmentation, duplex evaluation of the deep venous sy stem of the the left lower extremity was performed. Multiple images were obtained. Findings: There is no sonographic evidence of deep venous thrombosis involving the visualized deep ve nous structures of the left lower extremity. A somewhat oval-shaped complex fluid collection is seen within the soft tissues of the left calf. Thi s measures approximately 10 cm in greatest diameter. It likely represents a hematoma. Impression: There is no sonographic evidence of deep venous thrombosis involving the visualized deep venous structures of the left lower extremity. Electronically signed by: Getachew Verma MD (09/30/2021 3:13 PM) [id number]
--- NOTE | 2021-09-30 15:30 | RAD ---
XR FOOT_LEFT 3 VIEWS History: Reason: LEFT FOOT SWELLING, PAIN, DECREASED WEIGHT BEARING. / Spl. Instructions: / History: Technique: 3 views left foot Comparison: None. Findings: Chronic appearing deformity of the second and third metatarsophalangeal joints with erosive appearanc e of the metatarsal heads. Chronic deformity of the fourth and fifth metatarsal heads. Postop changes fifth metatarsal and first metatarsal. 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 Small plantar calcaneal spur. No acute fracture. No dislocation. Impression: 1. Chronic appearing deformities of the metatarsal heads, may relate to avascular necrosis and sever e degenerative changes. 2. Severe first MTP DJD. Electronically signed by: Balaji Hutchinson DO (09/30/2021 3:28 PM) [id number]
== END ==
LOC: RAD 14:33
PROVIDERS: ATTEND Specialist
DX: M19.072 Primary osteoarthritis, left ankle and foot (principal); M77.32 Calcaneal spur, left foot
CPT/HCPCS: 73630; 93971

== ENCOUNTER → 2021-10-03 | Outpatient (CLI) | payer MEDICARE ==
[~2021-10-03] MED LIST changes: +IOHEXOL 300 MG/ML 75 ML VIAL. IV ONE
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
== END ==
LOC: CT 12:31
PROVIDERS: ATTEND Specialist
DX: N28.1 Cyst of kidney, acquired (principal); I70.0 Atherosclerosis of aorta; J90 Pleural effusion, not elsewhere classified; M48.56XA Collapsed vertebra, not elsewhere classified, lumbar region, initial encounter for fracture; K86.89 Other specified diseases of pancreas; M51.36 Other intervertebral disc degeneration, lumbar region; M41.86 Other forms of scoliosis, lumbar region; Z93.1 Gastrostomy status; Z90.49 Acquired absence of other specified parts of digestive tract; Z90.81 Acquired absence of spleen
CPT/HCPCS: 74160; Q9967

== ENCOUNTER → 2021-11-03 | Outpatient (CLI) | payer MEDICARE ==
[~2021-11-03] MED LIST changes: -IOHEXOL 300 MG/ML 75 ML VIAL. IV ONE
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
== END ==
LOC: US 12:51
PROVIDERS: ATTEND Specialist
DX: N60.02 Solitary cyst of left breast (principal); R23.4 Changes in skin texture; N63.20 Unspecified lump in the left breast, unspecified quadrant
CPT/HCPCS: 76642

== ENCOUNTER → 2021-11-29 | Outpatient (CLI) | payer MEDICARE ==
--- NOTE | 2021-11-29 16:50 | RAD ---
XR CHEST 2V History: Reason: COUGH, CHANGE IN VOICE POST INTUBATION / Spl. Instructions: / History: Comparison: February 20, 2020 Findings: Mild left basilar linear atelectasis. No consolidation or pleural effusion. Normal heart size. No pne umothorax. Postop changes cervical spine. Impression: 1. Mild left basilar linear atelectasis. Electronically signed by: Balaji Hutchinson DO (11/29/2021 4:47 PM) [id number]
== END ==
LOC: RAD 11:22
PROVIDERS: ATTEND Specialist
DX: J98.11 Atelectasis (principal); Z98.890 Other specified postprocedural states
CPT/HCPCS: 71046

== ENCOUNTER → 2021-12-12 | Outpatient (CLI) | payer MEDICARE ==
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
== END ==
LOC: MAMMO 12:46
PROVIDERS: ATTEND Specialist
DX: N60.02 Solitary cyst of left breast (principal); N64.89 Other specified disorders of breast
CPT/HCPCS: 76641; 77066

== ENCOUNTER → 2022-02-07 | Outpatient (CLI) | payer MEDICARE ==
--- NOTE | 2022-02-07 17:52 | RAD ---
EXAM: PA and Lateral Views of the Chest DATE: 02/07/2022 5:01 PM INDICATION: Reason: COUGH AND WHEEZING / Spl. Instructions: / History: COMPARISON: No Prior FINDINGS: Cardiac mediastinal silhouette is stable. Linear opacities left lung base likely scarring/atelectasis . No pleural effusion or pneumothorax. Mild eventration right hemidiaphragm. IMPRESSION: Linear opacities left lung base likely scarring/atelectasis. Electronically signed by: Irving Suresh MD (02/07/2022 5:49 PM) [id number]
== END ==
LOC: RAD 16:40
PROVIDERS: ATTEND Specialist
DX: R91.8 Other nonspecific abnormal finding of lung field (principal); R06.2 Wheezing
CPT/HCPCS: 71046